=== PATIENT | female | born 2000 | race Two or more races ===

== ENCOUNTER 2018-02-15 20:26 | Emergency (ER) | payer OTHER ==
[~2018-02-15] VITALS: Ht 167.6 cm; Wt 115.7 kg
[2018-02-15 20:45] VITALS: BP 108/52
--- NOTE | 2018-02-15 20:54 | Emergency Room Report ---
History of Present Illness General Chief Complaint: Fever Source: Patient Present Illness HPI Patient is a 17-year-old female presented after increased body aches and fever. The patient denies having any past medical history. She reports having a moderate headache. She denies any neck stiffness. She denies any vomiting. She denies any dysuria. Allergies: Coded Allergies: No Known Allergies (Unverified , 02/15/18) Patient History Past Medical History: see triage record Last Menstrual Period: 1 1/2 months ago Now: No Reviewed Nursing Documentation: PMH: Agreed; PSxH: Agreed Nursing Documentation-PMH Past Medical History: No Stated History Review of Systems All Other Systems: negative except mentioned in HPI Physical Exam Vital Signs Date Time Temp Pulse Resp B/P (MAP) Pulse Ox O2 Delivery O2 Flow Rate FiO2 02/15/18 20:38 101.8 125 16 108/52 95 Room Air Sp02 EP Interpretation: reviewed, normal General Appearance: normal inspection, well appearing, no apparent distress, alert, GCS 15, obese Head: atraumatic ENT: normal ENT inspection, hearing grossly normal, normal voice, pharyngeal erythema Neck: normal inspection, full range of motion, supple, no meningismus, no bony tend Respiratory: normal inspection, lungs clear, normal breath sounds, no respiratory distress, no retraction, no wheezing Cardiovascular #1: regular rate, rhythm, no edema Gastrointestinal: normal inspection, normal bowel sounds, non tender, soft, no guarding, no hernia Genitourinary: no CVA tenderness Musculoskeletal: normal inspection, back normal, normal range of motion Neurologic: normal inspection, alert, oriented x3, responsive, educational aide III-XII nml as tested, speech normal Psychiatric: normal inspection, judgement/insight normal, mood/affect normal Skin: normal inspection, normal color, no rash Medical Decision Making Diagnostic Impression: Primary Impression: Urinary tract infection ER Course Patient presented for fever. Differential diagnosis included was not limited to sepsis, meningitis, influenza among others. Patient has a benign exam and does not appear to require any further imaging or laboratory testing at this timeThe laboratory testing showed evidence of urinary tract infection. Urine test was negative.. Patient was noted to have negative influenza. The patient was offered IV hydration which she declined. The patient is given oral antibiotics in the emergency department. She was advised to return if she began having any worsening condition. She is advised to increase by mouth hydration. Labs Test 02/15/18 21:15 Urine Color Mamie Urine Appearance Slightly cloudy Urine pH 5 (4.5-8.0) Urine Specific [place] 1.015 (1.005-1.035) Urine Protein 2+ (NEGATIVE) Urine Glucose (UA) Negative (NEGATIVE) Urine Ketones Negative (NEGATIVE) Urine Blood 2+ (NEGATIVE) Urine Nitrite Negative (NEGATIVE) Urine Bilirubin Negative (NEGATIVE) Urine Ictotest Negative (NEGATIVE) Urine Urobilinogen Normal MG/DL (0.0-1.0) Urine Leukocyte Esterase 3+ (NEGATIVE) Urine RBC 2-4 /HPF (0 - 2) Urine WBC 30-40 /HPF (0 - 2) Urine Squamous Epithelial Cells Many /LPF (NONE/OCC) Urine Bacteria Moderate /HPF (NONE) Urine HCG, Qualitative Negative (NEGATIVE) Last Vital Signs Date Time Temp Pulse Resp B/P (MAP) Pulse Ox O2 Delivery O2 Flow Rate FiO2 02/15/18 20:38 101.8 125 16 108/52 95 Room Air Status: improved Disposition: HOME, SELF-CARE Condition: Stable Scripts Ibuprofen* (MOTRIN*) 600 Mg Tablet 600 MG ORAL Q8H PRN for For Pain, #30 TAB 0 Refills Prov: Noel Calderon MD 02/15/18 Cephalexin* (KEFLEX*) 500 Mg Capsule 500 MG ORAL EVERY 6 HOURS, #40 CAP Prov: Noel Calderon MD 02/15/18 Noel Calderon MD Feb 15, 2018 20:54
[2018-02-15] MEDS ORDERED: Acetaminophen 500mg (ES) tab ORAL ONE (21:00)
[2018-02-15 21:15] VITALS: BP 115/55
[2018-02-15 21:49] LABS: APPEARANCE,URINE SLIGHTLY CLOUDY; BILIRUBIN, URINE NEGATIVE (NEGATIVE); COLOR,URINE AMBER; GLUCOSE, URINE (UA) NEGATIVE (NEGATIVE); KETONES,URINE NEGATIVE (NEGATIVE); LEUKOCYTE ESTERASE ,URINE 3+ (NEGATIVE); NITRITE,URINE NEGATIVE (NEGATIVE); PH,URINE 5 (4.5-8.0); PROTEIN,URINE 2+ (NEGATIVE); UROBILINOGEN,URINE NORMAL MG/DL (0.0-1.0)
[2018-02-15] MEDS ORDERED: IBUPROFEN600 MG ORAL (22:24)
[2018-02-15] MEDS ORDERED: CEPHALEXIN500 MG ORAL (22:24)
[2018-02-15] MEDS ORDERED: Cephalexin 500mg cap ORAL ONE (22:30)
[2018-02-15 22:32] VITALS: BP 115/57
[2018-02-15 22:45] VITALS: BP 115/57
== END 2018-02-15 22:45 | disposition home or self-care (01) ==
LOC: EMR 21:35
DX: N39.0 Urinary tract infection, site not specified (principal)
CPT/HCPCS: 81003; 81025; 86710; 87086; 99283